=== PATIENT | male | born 1960 | race Caucasian/White ===

== ENCOUNTER 2017-03-19 22:16 | Emergency (ER) | payer OTHER ==
[~2017-03-19] VITALS: Ht 180.3 cm; Wt 113.4 kg
[~2017-03-19 22:16] MED LIST: CLONAZEPAM 1 MG1 M1 PO; CYMBALTA20 MG PO; FLEXERIL PO; HYDROCODONE-AP1 EAC6 PO; LITHIUM CARBON300 M3 PO; NAPROSYN500 MG PO; PREVACID 30MG C30 M1 PO; VICODIN; VICODIN 5-5001 EACH PO
[2017-03-19] MEDS ORDERED: HYDROCODON-ACE1 EAC8 (22:25)
[2017-03-19] MEDS ORDERED: OXYBUTYNIN 5 MG5 M2 (22:26)
[2017-03-19] MEDS ORDERED: SYNTHROID100 MCG (22:26)
[2017-03-19] MEDS ORDERED: ZOLOFT50 MG (22:26)
[2017-03-19] MEDS ORDERED: NORVASC5 MG (22:26)
[2017-03-19] MEDS ORDERED: LISINOPRIL20 MG PO (22:27)
[2017-03-19] MEDS ORDERED: NORTRIPTYLINE H50 MG (22:27)
[2017-03-19] MEDS ORDERED: OMEPRAZOLE 20 M20 M1 (22:27)
[2017-03-19] MEDS ORDERED: FLEXERIL (22:27)
[2017-03-19 23:36] LABS: ABSOLUTE EOSINOPHILS 0.1 thou/uL (0.0-0.7); ABSOLUTE LYMPHOCYTES 1.5 thou/uL (0.8-5.3); ABSOLUTE MONOCYTES 0.4 thou/uL (0.0-1.2); ABSOLUTE NEUTROPHILS 2.4 thou/uL (1.6-8.1); BASOPHILS 0.9 %; EOSINOPHILS 2.4 %; HEMATOCRIT 39.2 % (42.0-52.0); HEMOGLOBIN 13.1 gm/dL (14.0-18.0); LYMPHOCYTES 33.9 %; MCHC 33.3 g/dL (28.0-37.0); MONOCYTES 9.7 %; MPV 6.9 fl. (7.2-11.1); NUCLEATED RBCS 0 /100WBC; PLATELET COUNT* 247 thou/uL (150-400); POLYS 53.1 %; RDW-CV 14.7 % (10.5-14.5); WBC 4.5 thou/uL (4.0-11.0)
[2017-03-19 23:41] LABS: CALCIUM 8.7 mg/dL (8.5-10.1); CREATININE 1.2 mg/dL (0.6-1.3); POTASSIUM 4.5 mmol/L (3.5-5.1)
[2017-03-19 23:52] LABS: ALBUMIN 3.7 g/dL (3.4-5.0); TOTAL BILIRUBIN 0.3 mg/dL (<0.1-1.0)
[2017-03-20] MEDS ORDERED: IBUPROFEN 800800 MG PO (01:07)
[2017-03-20 01:15] VITALS: BP 142/95
== END 2017-03-20 01:15 | disposition home or self-care (01) ==
LOC: M.ERS 22:16
PROVIDERS: Personal Emergency Response Attendant
DX: M79.601 Pain in right arm (principal); K21.9 Gastro-esophageal reflux disease without esophagitis; F32.9 Major depressive disorder, single episode, unspecified; E03.9 Hypothyroidism, unspecified; Z91.040 Latex allergy status

== ENCOUNTER 2017-08-02 14:05 | Emergency (ER) | payer OTHER ==
[~2017-08-02] VITALS: Ht 180.3 cm; Wt 117.9 kg
[~2017-08-02 14:05] MED LIST changes: +FLEXERIL; +HYDROCODON-ACE1 EAC8; +IBUPROFEN 800800 MG PO; +LISINOPRIL20 MG PO; +NORTRIPTYLINE H50 MG; +NORVASC5 MG; +OMEPRAZOLE 20 M20 M1; +OXYBUTYNIN 5 MG5 M2; +SYNTHROID100 MCG; +ZOLOFT50 MG
[2017-08-02] MEDS ORDERED: ROBAXIN500 MG PO (15:22)
[2017-08-02 15:36] VITALS: BP 104/57
== END 2017-08-02 15:38 | disposition home or self-care (01) ==
LOC: M.ERS 14:05
DX: M54.16 Radiculopathy, lumbar region (principal); K21.9 Gastro-esophageal reflux disease without esophagitis; E03.9 Hypothyroidism, unspecified; F32.9 Major depressive disorder, single episode, unspecified; Z87.442 Personal history of urinary calculi; Z91.040 Latex allergy status

== ENCOUNTER 2018-10-31 12:14 | Emergency (ER) | payer OTHER ==
[~2018-10-31] VITALS: Ht 177.8 cm; Wt 113.4 kg
[~2018-10-31 12:14] MED LIST changes: +ROBAXIN500 MG PO
[2018-10-31 12:32] LABS: URINE BILIRUBIN NEGATIVE (Negative); URINE BLOOD NEGATIVE (Negative); URINE CLARITY CLEAR; URINE COLOR YELLOW; URINE GLUCOSE-RANDOM NEGATIVE (Negative); URINE KETONES NEGATIVE (Negative); URINE LEUKOCYTES-REFLEX NEGATIVE (Negative); URINE NITRITE-REFLEX NEGATIVE (Negative); URINE PROTEIN NEGATIVE (Negative); URINE UROBILINOGEN 0.2 E.U./dl (0.2-1.0)
[2018-10-31 12:51] LABS: ABSOLUTE EOSINOPHILS 0.2 thou/uL (0.0-0.7); ABSOLUTE LYMPHOCYTES 1.1 thou/uL (0.8-5.3); ABSOLUTE MONOCYTES 0.3 thou/uL (0.0-1.2); BASOPHILS 0.8 %; EOSINOPHILS 4.9 %; HEMATOCRIT 42.1 % (42.0-52.0); HEMOGLOBIN 14.5 gm/dL (14.0-18.0); LYMPHOCYTES 30.3 %; MCH 29.5 pg (26.0-34.0); MCHC 34.4 g/dL (28.0-37.0); MCV 85.8 fL (80.0-100.0); MONOCYTES 8.5 %; MPV 7.4 fl. (7.2-11.1); NUCLEATED RBCS 0 /100WBC; PLATELET COUNT* 256 thou/uL (150-400); POLYS 55.5 %; RDW-CV 14.7 % (10.5-14.5); WBC 3.6 thou/uL (4.0-11.0)
[2018-10-31 13:01] LABS: ANION GAP 5 mmol/L (7-16); BUN 12 mg/dL (7-18); CALCIUM 8.4 mg/dL (8.5-10.1); CHLORIDE 106 mmol/L (98-107); CO2 29 mmol/L (21-32); CREATININE 1.1 mg/dL (0.6-1.3); GLUCOSE 91 mg/dL (70-99); POTASSIUM 4.3 mmol/L (3.5-5.1); SODIUM 140 mmol/L (136-145)
[2018-10-31 13:10] LABS: ALBUMIN 3.6 g/dL (3.4-5.0); ALKALINE PHOSPHATASE 83 U/L (46-116); LIPASE 107 U/L (73-393); SGOT 17 U/L (15-37); SGPT 23 U/L (30-65); TOTAL BILIRUBIN 0.3 mg/dL (<0.1-1.0); TOTAL PROTEIN 6.6 g/dL (6.4-8.2); TROPONIN-I LEVEL <0.06 ng/mL (<0.06)
[2018-10-31] MEDS ORDERED: HYDROCODON-ACE1 EAC7 PO (13:48)
[2018-10-31 14:11] VITALS: BP 138/78
== END 2018-10-31 14:12 | disposition home or self-care (01) ==
LOC: M.ERS 12:14
PROVIDERS: Emergency Medicine
DX: R10.9 Unspecified abdominal pain (principal); K21.9 Gastro-esophageal reflux disease without esophagitis; F32.9 Major depressive disorder, single episode, unspecified; E03.9 Hypothyroidism, unspecified; Z87.442 Personal history of urinary calculi; Z91.040 Latex allergy status

== ENCOUNTER 2020-03-23 23:28 | Emergency (ER) | payer OTHER ==
[~2020-03-23] VITALS: Ht 177.8 cm; Wt 99.8 kg
[~2020-03-23 23:28] MED LIST changes: +HYDROCODON-ACE1 EAC7 PO
[2020-03-23 23:53] LABS: ABSOLUTE EOSINOPHILS 0.1 thou/uL (0.0-0.7); ABSOLUTE LYMPHOCYTES 2.8 thou/uL (0.8-5.3); ABSOLUTE MONOCYTES 0.4 thou/uL (0.0-1.2); ABSOLUTE NEUTROPHILS 2.6 thou/uL (1.6-8.1); BASOPHILS 0.8 %; EOSINOPHILS 1.2 %; HEMATOCRIT 43.8 % (42.0-52.0); LYMPHOCYTES 46.3 %; MCHC 34.2 g/dL (28.0-37.0); MCV 87.7 fL (80.0-100.0); MONOCYTES 7.4 %; NUCLEATED RBCS 0 /100WBC; PLATELET COUNT* 315 thou/uL (150-400); POLYS 44.3 %; RDW-CV 13.9 % (10.5-14.5)
[2020-03-23 23:58] LABS: CREATININE 1.1 mg/dL (0.6-1.3); POTASSIUM 3.8 mmol/L (3.5-5.1)
[2020-03-24 00:03] LABS: ALBUMIN 3.9 g/dL (3.4-5.0); TOTAL BILIRUBIN 0.2 mg/dL (<0.1-1.0); TOTAL PROTEIN 7.4 g/dL (6.4-8.2)
[2020-03-24 00:05] LABS: URINE BILIRUBIN NEGATIVE (Negative); URINE BLOOD TRACE (Negative); URINE CLARITY CLEAR; URINE COLOR YELLOW; URINE GLUCOSE-RANDOM NEGATIVE (Negative); URINE KETONES NEGATIVE (Negative); URINE LEUKOCYTES-REFLEX NEGATIVE (Negative); URINE NITRITE-REFLEX NEGATIVE (Negative); URINE PROTEIN NEGATIVE (Negative); URINE SPECIFIC GRAVITY 1.015 (1.005-1.030)
[2020-03-24 00:06] LABS: ACETAMINOPHEN < 2 ug/mL (10-30); ALCOHOL 162 mg/dL (<10); SALICYLATE < 2.8 mg/dL (2.8-20.0)
[2020-03-24 00:14] LABS: AMP/METHAMP Negative (Negative); BARBITURATES Negative (Negative); BENZODIAZEPINES Negative (Negative); COCAINE Negative (Negative); METHADONE Negative (Negative); OPIATES Negative (Negative); PCP Negative (Negative); THC Negative (Negative)
[2020-03-24 07:07] VITALS: BP 127/67
== END 2020-03-24 07:07 | disposition still patient (30) ==
LOC: M.ERS 23:28
PROVIDERS: Emergency Medicine
DX: R45.851 Suicidal ideations (principal); Z20.828 Contact with and (suspected) exposure to other viral communicable diseases; K21.9 Gastro-esophageal reflux disease without esophagitis; E03.9 Hypothyroidism, unspecified; Z91.040 Latex allergy status; Z87.442 Personal history of urinary calculi; Z79.899 Other long term (current) drug therapy

== ENCOUNTER 2020-04-04 06:40 | Emergency (ER) | payer OTHER ==
[~2020-04-04] VITALS: Ht 177.8 cm; Wt 99.8 kg
[2020-04-04 06:58] LABS: RDW-CV 14.6 % (10.5-14.5)
[2020-04-04 07:00] LABS: ABSOLUTE BASOPHILS 0.1 thou/uL (0.0-0.2); ABSOLUTE LYMPHOCYTES 2.4 thou/uL (0.8-5.3); ABSOLUTE MONOCYTES 1.1 thou/uL (0.0-1.2); ABSOLUTE NEUTROPHILS 5.3 thou/uL (1.6-8.1); BASOPHILS 0.7 %; EOSINOPHILS 0.5 %; HEMATOCRIT 47.2 % (42.0-52.0); HEMOGLOBIN 16.1 gm/dL (14.0-18.0); LYMPHOCYTES 26.9 %; MCHC 34.1 g/dL (28.0-37.0); MCV 87.8 fL (80.0-100.0); MONOCYTES 11.9 %; MPV 7.2 fl. (7.2-11.1); NUCLEATED RBCS 0 /100WBC; PLATELET COUNT* 321 thou/uL (150-400); RBC 5.38 mil/uL (4.50-6.00); WBC 8.8 thou/uL (4.0-11.0)
[2020-04-04 07:11] LABS: PROTIME 10.6 Seconds (9.20-11.50)
[2020-04-04 07:21] LABS: URINE BILIRUBIN NEGATIVE (Negative); URINE BLOOD TRACE (Negative); URINE CLARITY CLEAR; URINE COLOR YELLOW; URINE GLUCOSE-RANDOM NEGATIVE (Negative); URINE KETONES TRACE (Negative); URINE LEUKOCYTES-REFLEX NEGATIVE (Negative); URINE NITRITE-REFLEX NEGATIVE (Negative); URINE PROTEIN NEGATIVE (Negative); URINE SPECIFIC GRAVITY 1.015 (1.005-1.030)
[2020-04-04 07:24] LABS: ALBUMIN 4.4 g/dL (3.4-5.0); CREATININE 1.2 mg/dL (0.6-1.3); MAGNESIUM 1.7 mg/dL (1.8-2.4); TOTAL BILIRUBIN 0.7 mg/dL (<0.1-1.0); TOTAL PROTEIN 7.9 g/dL (6.4-8.2)
[2020-04-04 07:42] LABS: AMP/METHAMP POSITIVE (Negative); BARBITURATES Negative (Negative); BENZODIAZEPINES Negative (Negative); COCAINE Negative (Negative); METHADONE Negative (Negative); OPIATES Negative (Negative); PCP Negative (Negative); THC Negative (Negative)
[2020-04-04 09:08] VITALS: BP 120/92
--- NOTE | 2020-04-04 11:15 | EKG ---
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: [facility] : 1960 Requested By: Nighat Byers Order Number: [id number] MD: Maximino Mariee Measurements Intervals [place] Rate: 96 P: 43 FL: 168 QRS: 32 QRSD: 110 T: 40 QT: 364 QTc: 460 Interpretive Statements Sinus rhythm Baseline wander in lead(s) II,III,aVF,V2 Compared to ECG 09/23/2013 11:22:32 Sinus bradycardia no longer present Electronically Signed On 04-04-2020 11:15:35 [employer]ING [employer] by Maximino Mariee [email or web address] <ELECTRONICALLY SIGNED> By: Maximino Mariee MD, [facility] 04/04/20 1115 0647 0647 Maximino Mariee MD, [facility] /EPI
== END 2020-04-04 09:09 | disposition home or self-care (01) ==
LOC: M.ERS 06:40
PROVIDERS: Emergency Medicine; Emergency Medicine Emergency Medical Services
DX: R07.89 Other chest pain (principal); Z20.822 Contact with and (suspected) exposure to COVID-19; K21.9 Gastro-esophageal reflux disease without esophagitis; E03.9 Hypothyroidism, unspecified; Z87.442 Personal history of urinary calculi; Z91.040 Latex allergy status; Z79.899 Other long term (current) drug therapy

== ENCOUNTER 2020-05-17 13:48 | Emergency (ER) | payer OTHER ==
[~2020-05-17] VITALS: Ht 177.8 cm; Wt 94.3 kg
[~2020-05-17 13:48] MED LIST changes: -NORVASC5 MG; +NORVASC5 MG PO; -OXYBUTYNIN 5 MG5 M2; +OXYBUTYNIN 5 MG5 M2 PO; +SYNTHROID100 MC1 PO; -SYNTHROID100 MCG
[2020-05-17] MEDS ORDERED: CLONAZEPAM 0.50.5 M1 PO (13:58)
[2020-05-17] MEDS ORDERED: DESYREL150 MG PO (13:58)
[2020-05-17] MEDS ORDERED: OXTELLAR XR300 MG PO (13:58)
[2020-05-17] MEDS ORDERED: MIRTAZAPINE15 M1 PO (13:59)
[2020-05-17] MEDS ORDERED: TOPROL XL50 MG PO (14:00)
[2020-05-17] MEDS ORDERED: TRUVADA 200 MG1 EACH PO (14:01)
[2020-05-17 14:22] LABS: HEMATOCRIT 41.3 % (42.0-52.0); HEMOGLOBIN 13.8 gm/dL (14.0-18.0); MCHC 33.4 g/dL (28.0-37.0); MCV 89.8 fL (80.0-100.0); RBC 4.6 mil/uL (4.50-6.00); RDW-CV 14.1 % (10.5-14.5); WBC 5.3 thou/uL (4.0-11.0)
[2020-05-17 14:31] LABS: CALCIUM 8.6 mg/dL (8.5-10.1); CREATININE 1.2 mg/dL (0.6-1.3); POTASSIUM 4.2 mmol/L (3.5-5.1)
[2020-05-17 14:33] LABS: PROTIME 10.5 Seconds (9.20-11.50)
[2020-05-17 14:36] LABS: ALBUMIN 3.4 g/dL (3.4-5.0); TOTAL BILIRUBIN 0.3 mg/dL (<0.1-1.0); TOTAL PROTEIN 6.6 g/dL (6.4-8.2)
[2020-05-17 16:18] VITALS: BP 123/75
--- NOTE | 2020-05-17 17:02 | EKG ---
[place] [address] ELECTROCARDIOGRAM REPORT Name: EDUARDO JUAN Room: [facility]#: [id number] Admission: 05/17/20 Attend Phys: Discharge: 05/17/20 Date of : 60 Date of Service: 05/17/20 1406 Report #: [id number] THIS REPORT FOR: //name// 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 : 1960 Requested By: Manoj Dunlap Order Number: [id number] MD: Maximino Mariee Measurements Intervals [place] Rate: 54 P: 27 [place]: 193 QRS: 16 QRSD: 117 T: 19 QT: 413 QTc: 392 Interpretive Statements Sinus bradycardia Nonspecific intraventricular conduction delay Compared to ECG 04/04/2020 06:47:38 rate has slowed Electronically Signed On 05-17-2020 17:02:28 CDT by Maximino Mariee [email or web address] <ELECTRONICALLY SIGNED> By: Maximino Mariee MD, [facility] 05/17/20 1702 1406 1406 Maximino Mariee MD, [facility] /EPI
== END 2020-05-17 16:19 | disposition home or self-care (01) ==
LOC: M.ERS 13:48
PROVIDERS: Emergency Medicine
DX: I95.1 Orthostatic hypotension (principal); K21.9 Gastro-esophageal reflux disease without esophagitis; E03.9 Hypothyroidism, unspecified; F31.9 Bipolar disorder, unspecified; Z98.890 Other specified postprocedural states; Z87.442 Personal history of urinary calculi; Z79.899 Other long term (current) drug therapy; Z91.040 Latex allergy status

== ENCOUNTER 2020-08-09 09:58 | Emergency (ER) | payer OTHER ==
[~2020-08-09] VITALS: Ht 180.3 cm; Wt 95.3 kg
[~2020-08-09 09:58] MED LIST changes: +CLONAZEPAM 0.50.5 M1 PO; +DESYREL150 MG PO; +MIRTAZAPINE15 M1 PO; +OXTELLAR XR300 MG PO; +TOPROL XL50 MG PO; +TRUVADA 200 MG1 EACH PO
[2020-08-09 10:14] LABS: ABSOLUTE EOSINOPHILS 0.1 thou/uL (0.0-0.7); ABSOLUTE LYMPHOCYTES 1.2 thou/uL (0.8-5.3); ABSOLUTE MONOCYTES 0.5 thou/uL (0.0-1.2); BASOPHILS 0.8 %; EOSINOPHILS 1.9 %; HEMATOCRIT 41.3 % (42.0-52.0); HEMOGLOBIN 14.3 gm/dL (14.0-18.0); LYMPHOCYTES 30.6 %; MCH 30.7 pg (26.0-34.0); MCHC 34.5 g/dL (28.0-37.0); MCV 88.9 fL (80.0-100.0); MONOCYTES 12.6 %; MPV 6.6 fl. (7.2-11.1); NUCLEATED RBCS 0 /100WBC; PLATELET COUNT* 260 thou/uL (150-400); POLYS 54.1 %; RBC 4.64 mil/uL (4.50-6.00); RDW-CV 15.2 % (10.5-14.5); WBC 3.8 thou/uL (4.0-11.0)
[2020-08-09 10:24] LABS: CREATININE 1.1 mg/dL (0.6-1.3); POTASSIUM 4.1 mmol/L (3.5-5.1)
[2020-08-09 10:36] LABS: ALBUMIN 3.7 g/dL (3.4-5.0); CK-MB MASS 0.7 ng/mL (<0.5-3.6); TOTAL BILIRUBIN 0.3 mg/dL (<0.1-1.0)
[2020-08-09 11:26] VITALS: BP 116/70
--- NOTE | 2020-08-09 15:46 | EKG ---
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 : 1960 Requested By: Cornelius Deal Order Number: [id number] MD: Candelario Sal Measurements Intervals [place] Rate: 49 P: 31 [place]: 181 QRS: 16 QRSD: 123 T: 24 QT: 453 QTc: 409 Interpretive Statements Sinus bradycardia Nonspecific intraventricular conduction delay Compared to ECG 06/11/2020 18:50:1 Intraventricular conduction delay persists Sinus rate has slowed Electronically Signed On 08-09-2020 15:46:00 CDT by Candelario Sal [email or web address] <ELECTRONICALLY SIGNED> By: Candelario Sal MD, [facility] 08/09/20 1546 1001 1001 Candelario Sal MD, [facility] /EPI
== END 2020-08-09 11:27 | disposition home or self-care (01) ==
LOC: M.ERS 09:58
PROVIDERS: Family Medicine
DX: R07.89 Other chest pain (principal); E03.9 Hypothyroidism, unspecified; K21.9 Gastro-esophageal reflux disease without esophagitis; Z91.040 Latex allergy status; Z87.442 Personal history of urinary calculi